=== PATIENT | female | born 1960 | race Caucasian/White ===

== ENCOUNTER 2017-06-27 07:55 | Emergency (ER) | payer OTHER ==
--- NOTE | 2017-06-27 08:08 | UC ---
Back Pain HPI - HPI Summary HPI Summary: 57 YEAR OLD FEMALE WITH A HISTORY OF LYME DISEASE PRESENTS WITH COMPLAINS RIGHT SIDED UPPER BACK PAIN/SPASM. - History of Current Complaint Stated Complaint: BACK PAIN Time Seen by Provider: 06/27/17 08:07 Hx Obtained From: Patient Onset/Duration: Sudden Onset Timing: Constant Severity Initially: Moderate Severity Currently: Moderate Pain Scale Used: 0-10 Numeric - 4 - Allergies/Home Medications Allergies/Adverse Reactions: Allergies Allergy/AdvReac Type Severity Reaction Status Date / Time No Known Allergies Allergy Verified 06/27/17 08:05 Home Medications: Home Medications Levothyroxine TAB* [Synthroid 25 MCG TAB*] 25 mcg PO DAILY 06/27/17 [History Confirmed 06/27/17] PMH/Surg Hx/FS Hx/Imm Hx Previously Healthy: Yes - Family History Known Family History: Positive: None - Social History Alcohol Use: Occasionally Alcohol Amount: 1/4 glass of wine at night Substance Use Type: None Smoking Status (MU): Never Smoked Tobacco Review of Systems Constitutional: Negative Skin: Negative Eyes: Negative ENT: Negative Respiratory: Negative Cardiovascular: Negative Gastrointestinal: Negative Genitourinary: Negative Motor: Negative Neurovascular: Negative Musculoskeletal: Myalgia, Other: - RIGHT SIDED BACK PAIN Neurological: Negative Psychological: Negative All Other Systems Reviewed And Are Negative: Yes Physical Exam Triage Information Reviewed: Yes Appearance: Well-Appearing Vital Signs Reviewed: Yes Eye Exam: Normal ENT Exam: Normal Dental Exam: Normal Neck exam: Normal Neck: Positive: 1 Respiratory Exam: Normal Cardiovascular Exam: Normal Abdominal Exam: Normal Musculoskeletal Exam: Normal Neurological Exam: Normal Psychological Exam: Normal Skin Exam: Normal Back Pain Course/Dx - Differential Dx/Diagnosis Provider Diagnoses: RIGHT SIDED UPPER BACK PAIN Discharge - Discharge Plan Condition: Stable Disposition: HOME Prescriptions: Ibuprofen TAB* [Motrin TAB* 800 MG] 800 mg PO Q8H PRN #30 tab PRN Reason: Pain Methocarbamol TAB* [Robaxin 500 MG TAB*] 500 mg PO TID PRN #30 tab PRN Reason: Spasms - Back Patient Education Materials: Muscle Spasm (ED), Back Pain (ED) Referrals: Tracie Alejandra MD [Primary Care Provider] -
[2017-06-27 08:13] VITALS: BP 146/86
== END 2017-06-27 08:22 | disposition home or self-care (01) ==
LOC: UCEAST 07:55
DX: M54.9 Dorsalgia, unspecified (principal); Z86.19 Personal history of other infectious and parasitic diseases
CPT/HCPCS: 99212; G0463

== ENCOUNTER 2017-11-03 16:34 | Emergency (ER) | payer OTHER ==
[2017-11-03 17:03] VITALS: BP 144/98
--- NOTE | 2017-11-03 17:29 | UC ---
Throat Pain/Nasal Bautista HPI - HPI Summary HPI Summary: sinus congestion, frontal manriquez, pnd and cough x 4 days secretion green tactile temp dental pain no rash, chills no sob no n/v/d Pt with h/o sinus infections - feels similar Pt states + sick contact no myalgia Pt's medications reviewed this visit - History of Current Complaint Chief Complaint: UCGeneralIllness Stated Complaint: URI Time Seen by Provider: 11/03/17 17:28 Hx Obtained From: Patient ?: No Onset/Duration: Gradual Onset, Lasting Days Severity: Moderate Pain Intensity: 4 Pain Scale Used: 0-10 Numeric Cough: Nonproductive Associated Signs & Symptoms: Positive: Sinus Discomfort, Nasal Discharge, Fever - Allergies/Home Medications Allergies/Adverse Reactions: Allergies Allergy/AdvReac Type Severity Reaction Status Date / Time No Known Allergies Allergy Verified 06/27/17 08:05 PMH/Surg Hx/FS Hx/Imm Hx Previously Healthy: Yes - Surgical History Surgical History: None - Family History Known Family History: Positive: None - Social History Occupation: Employed Full-time Lives: With Family Alcohol Use: Occasionally Alcohol Amount: 1/4 glass of wine at night Substance Use Type: None Smoking Status (MU): Never Smoked Tobacco Review of Systems Constitutional: Fever - tactile ENT: Sore Throat, Nasal Discharge, Sinus Congestion, Sinus Pain/Tenderness Respiratory: Cough All Other Systems Reviewed And Are Negative: Yes Physical Exam Triage Information Reviewed: Yes Appearance: Well-Appearing, No Pain Distress, Well-Nourished Vital Signs: Initial Vital Signs Temp 98.3 F 11/03/17 16:56 Pulse 77 11/03/17 16:56 Resp 20 11/03/17 16:56 BP 144/98 11/03/17 16:56 Pulse Ox 98 11/03/17 16:56 Vital Signs Reviewed: Yes Eye Exam: Normal Eyes: Positive: Conjunctiva Clear ENT: Positive: Sinus tenderness, Uvula midline, Other - TM x2 clear, mild fluid turbinates inflammed and boggy + PND uvula midline, no exudate, no erythema Dental Exam: Normal Neck exam: Normal Respiratory Exam: Normal Respiratory: Positive: Chest non-tender, Lungs clear, Normal breath sounds Cardiovascular Exam: Normal Cardiovascular: Positive: RRR, No Murmur Abdominal Exam: Normal Abdomen Description: Positive: Nontender, No Organomegaly, Soft Bowel Sounds: Positive: Present Musculoskeletal Exam: Normal Neurological Exam: Normal Psychological Exam: Normal Skin Exam: Normal Throat Pain/Nasal Course/Dx - Course Course Of Treatment: Pt with sinus congestion and facial pressure x 4 days. exam c/w sinusitus. abx. secretion precaution. apap/motrin. flonase. hydrate - Differential Dx/Diagnosis Provider Diagnoses: sinusitis Discharge - Discharge Plan Condition: Stable Disposition: HOME Prescriptions: Amoxicillin PO (*) [Amoxicillin 875 MG (*)] 875 mg PO BID #20 tab Fluticasone NASAL SPRAY 50MCG* [Flonase NASAL SPRAY 50MCG*] 2 spray BOTH NARES DAILY #1 btl Patient Education Materials: Sinusitis (ED) Referrals: Tracie Alejandra MD [Primary Care Provider] - Additional Instructions: - Stay well hydrated. Drink plenty of non-alcoholic, non-caffinated beverages. - Alternate ibuprofen (Advil, Motrin) 600mg and Tylenol every 3 hours for pain or fever. Take with food. Do NOT take for more than 4-5 days. - okay to gargle and spit with warm salt water, 2-3 times a day - Do not start antibiotics for 48 hours - if your symptoms persist or worsen, okay to start antibiotics - These infections are spread by secretions - do NOT share eating or drinking utensils - clean items you share with other people such as cell phones, computer mouse, TV remote, computer tablets, etc. Once you start to feel better OR 2 days after taking antibiotics, change your toothbrush and your pillowcase. - use nasal spray as prescribed - get plenty of restful sleep - humidify the air in the room where you sleep - boil water, run a hot steam shower, vaporizer, cups of water by heat register - okay to take over the counter decongestant and cough medication - contact your doctor, return here or go to the emergency department with questions or concerns
== END 2017-11-03 18:40 | disposition home or self-care (01) ==
LOC: UCEAST 16:34
DX: J32.9 Chronic sinusitis, unspecified (principal)
CPT/HCPCS: 87502; 99212; G0463